=== PATIENT | male | born 1985 | race Caucasian/White ===

== ENCOUNTER 2024-05-15 14:43 | Emergency (ER) | payer BC, SELFPAY ==
[2024-05-15 14:44] VITALS: BP 145/90
[2024-05-15 15:14] LABS: % Basophils 0.6 % (0-2); % Eosinophils 0.7 % (0-6); % Immature Granulocytes 0.3 % (0-0.5); % Lymphocytes 22.4 % (20.5-51.1); % Monocytes 6.8 % (1.7-9.3); % Neutrophils 69.2 % (42.2-75.2); Absolute Basophils 0.1 10^3/uL (0-0.2); Absolute Eosinophils 0.1 10^3/uL (0-0.7); Absolute Lymphocytes 2.7 10^3/uL (1.2-3.4); Absolute Monocytes 0.8 10^3/uL (0.1-0.6); Absolute Neutrophils 8.3 10^3/uL (1.4-6.5); Hematocrit 42.8 % (39.0-52.0); Hemoglobin 15.5 g/dL (13.0-18.0); Mean Corp Hgb Conc. 36.2 g/dL (33.0-37.0); Mean Corpuscular Volume 82.9 fL (80.0-94.0); Mean Platelet Volume 10.5 fL (7.4-10.4); Nucleated Red Blood Cells % 0 % (-); Platelet Count 266 10^3/uL (130-400); Red Blood Cell Count 5.16 10^6/uL (4.70-6.10); Red Cell Dist. Width 12.1 % (11.5-14.5)
[2024-05-15 15:34] LABS: ALT (SGPT) 30 U/L (0-50); AST (SGOT) 31 U/L (17-59); Albumin 4.6 g/dl (3.5-5.0); Alkaline Phosphatase 73 U/L (38-126); Blood Urea Nitrogen 14 mg/dl (9-20); Calcium 9.1 mg/dl (8.4-10.2); Carbon Dioxide 25 mmol/L (22-30); Chloride 103 mmol/L (98-107); Glucose 117 mg/dl (70-99); Potassium 4.2 mmol/L (3.5-5.1); Sodium 138 mmol/L (135-145); Total Bilirubin 0.5 mg/dl (0.2-1.3); Total Protein 7.5 g/dl (6.3-8.2); eGFR > 60.00
[2024-05-15 15:37] VITALS: BP 150/76
[2024-05-15 15:38] VITALS: BMI 32.2
[2024-05-15 15:38] LABS: Troponin I < 0.012 ng/ml
--- NOTE | 2024-05-15 15:55 | ED.GENMED ---
History of Present Illness
General
Chief Complaint: Breathing Problem
Source: patient
Time Seen by Provider: 05/15/24 15:38
History of Present Illness
History of Present Illness:
38yoM with no significant past medical history presenting for evaluation of palpitations. Patient was at home this afternoon around 1 PM when he started to have palpitations. He states it felt like his heart was racing. This was followed by
nausea. Patient tried to do some deep breathing exercises and meditation. He then started to experience tingling in his bilateral hands and decided to come to the ED. Symptoms have since resolved upon arrival. Patient is unsure if he had too
much caffeine this morning. He reports drinking two 16 ounce cold brew coffees. He denies any dizziness, syncope, or chest pain. No calf pain, leg swelling, recent travel. No family history of heart disease.
Past History
Past History
ED Past Medical History: Other (Seasonal allergies)
ED Past Surgical History: None
Social History
Tobacco: Non-smoker
Alcohol: Occasional
Drug: None
Personal:
Living: with family
Employment: Employed
Family History
Family History: Other (Noncontributory)
Phy Exam
General Physical Exam
General Presentation: well appearing and no apparent distress
General age: appears stated age
General Skin: warm and dry
General Habitus: normal
General Mental: alert
Cardiovascular Exam
Cardiovascular Exam: regular rate/rhythm, no edema, no murmur and normal peripheral pulses (2+ DP pulses bilaterally)
Pulmonary Exam
Pulmonary Exam: lungs clear, no respiratory distress, no crackles and no wheezing
Skin Exam
Skin Exam: normal color and warm/dry
Psychiatric Exam
Psychiatric Exam: normal mood/affect
Course
Orders/Labs/Results
Orders:
Orders
05/15/24 14:47
Electrocardiogram (*1) Urgent
Reason for Study: Shortness of Breath
EKG- Treatment ONCE
05/15/24 14:56
Comprehensive Metabolic Panel Urgent
Troponin I Urgent
05/15/24 14:57
Complete Blood Count/With Diff Urgent
05/15/24 15:54
CR Chest - 2 Views Urgent
Comment:
Reason For Exam: SOB
Abnormal Lab Results
05/15/24 05/15/24
14:56 14:57
WBC 12.0 H 10^3/uL
(4.8-10.8)
MPV 10.5 H fL
(7.4-10.4)
Absolute Neuts (auto) 8.3 H 10^3/uL
(1.4-6.5)
Absolute Monos (auto) 0.8 H 10^3/uL
(0.1-0.6)
Glucose 117 H mg/dl
(70-99)
05/15/24 14:57
05/15/24 14:56
Vital Signs
Initial and Last Documented VS:
Initial Vital Signs
Temp Pulse Resp BP Pulse Ox
97.7 F 85 16 145/90 98
05/15/24 14:44 05/15/24 14:44 05/15/24 14:44 05/15/24 14:44 05/15/24 14:44
Last Documented Vital Signs
Temp Pulse Resp BP Pulse Ox
97.7 F 65 18 130/75 98
05/15/24 14:44 05/15/24 15:45 05/15/24 15:45 05/15/24 17:28 05/15/24 17:30
MDM/Problems Addressed
Differential Diagnosis Includes:
38yoM here after an episode of palpitations. Associated with nausea and bilateral hand tingling. Symptoms now resolved. No CP or syncope. He is afebrile and hemodynamically stable. He is well-appearing in no acute distress. Exam is reassuring.
Differential diagnosis includes but is not limited to: Arrhythmia, electrolyte abnormality, caffeine side effect
Initial ED plan: Check cardiac labs, EKG, and chest x-ray.
*EKG
Interpreted by ED Provider?: Yes
EKG Intrepretation Date: 05/15/24
EKG Intrepretation Time: 15:58
Heart Rate: 80
Rate: normal
Rhythm: sinus
[place]: normal axis
Interval: normal interval
QRS Pattern: normal QRS
Ischemia: no ischemia
*Critical Care Note
Total Time (30-74mins, 75-104mins- exclusive of procedures): Not Applicable
Update Note
Update Note:
Labs reveal a leukocytosis with a white count of 12 which is nonspecific. Electrolytes within normal limits. Troponin less than 0.012. Chest x-ray is clear. Patient remains asymptomatic on reassessment. No indication for admission at this time.
Advised close PCP follow-up. ED return precautions discussed. Patient expressed understanding is agreeable to plan. Patient discharged in stable condition.
ED Attending Note
-
Portions of this chart may have been created with voice recognition software.� Occasional wrong word or��sound alike� substitutions may have occurred due to the inherent limitations of voice recognition software.
Discharge Plan
Departure
Patient Disposition: Home (Routine Discharge)
Date of Disposition: 05/15/24
Time of Disposition: 17:30
Patient with high blood pressure during this ER visit?: Yes
Discharge Problem:
Heart palpitations
Instructions: Heart Palpitations
Prescriptions:
No Action
methylprednisolone [Medrol (Dimitri)] 4 MG tablets,dose pack
4 tab PO . DIRECT Qty: 1 0RF
ondansetron 4 MG tablet,disintegrating
4 mg PO TIDPRN PRN (Reason: nausea/vomiting) Qty: 10 0RF
amoxicillin 500 MG capsule
500 mg PO TID Qty: 30 0RF
Referrals:
Ovidio Marcelo CRNP [Family Provider] -
Activity Restrictions/Additional Instructions:
Please follow-up with your family doctor on Friday. Return to the ER with any new or worsening symptoms.
Interventions
Interventions:
*Risk Screen - Suicide Last Done: 05/15/24 14:44
*General Assessment Last Done: 05/15/24 14:44
*Neglect/Abuse Screening Last Done: 05/15/24 14:44
ED- Fall Risk Assessment Last Done: 05/15/24 16:41
*ED COVID-19 Vaccine History Last Done: 05/15/24 14:47
*Nursing Disposition Last Done: 05/15/24 17:36
ED- Cardiac Assessment Last Done: 05/15/24 16:41
ED- Pulmonary Assessment Last Done: 05/15/24 16:41
Discharge Date and Time
Discharge Date/Time: 05/15/24 17:36
Print Language: [place]
[2024-05-15 17:28] VITALS: BP 130/75
== END 2024-05-15 17:36 | disposition home or self-care (01) ==
LOC: EMR 14:43
PROVIDERS: Emergency Medicine; EMERGENCY PHYSICIAN Emergency Medicine; FAMILY PHYSICIAN Nurse Practitioner
DX: R00.2 Palpitations (principal); R06.02 Shortness of breath; R03.0 Elevated blood-pressure reading, without diagnosis of hypertension; R20.2 Paresthesia of skin
CPT/HCPCS: 99285; 71046; 80053; 84484; 85025; 93005